=== PATIENT | female | born 1960 | race Caucasian/White ===

== ENCOUNTER 2021-09-07 11:24 | Emergency (ER) | payer OTHER ==
[2021-09-07 12:19] LABS: Basophils % (A) 1 %; Eosinophils # (A) 0.4 k/uL (0-0.7); Eosinophils % (A) 4 %; HCT 39.8 % (34.0-46.0); HGB 13.2 gm/dL (11.4-16.0); Lymphocytes # (A) 1.3 k/uL (1.0-4.8); Lymphocytes % (A) 15 %; MCHC 33.2 g/dL (31.0-37.0); MCV 93.3 fL (80.0-100.0); Monocytes # (A) 0.3 k/uL (0-1.0); Monocytes % (A) 4 %; Neutrophils % (A) 76 %; Platelet Count 344 k/uL (150-450); RBC 4.27 m/uL (3.80-5.40); RDW 15.2 % (11.5-15.5); WBC 9.2 k/uL (3.8-10.6)
--- NOTE | 2021-09-07 12:23 | XR ---
EXAMINATION TYPE: XR chest 2V DATE OF EXAM: 09/07/2021 COMPARISON: NONE HISTORY: Shortness of breath with bradycardia TECHNIQUE: Frontal and lateral views of the chest are obtained. FINDINGS: Overlying sternal wires and mediastinal clips. There is cardiac valvular ring. Cardiomegaly with dual-lead pacemaker is present. Mild chronic parenchymal changes without suspicious focal airsp bj opacity, pleural effusion, or pneumothorax seen bilaterally. Osseous structures are demineralized . Stent graft in the abdominal aorta is partially imaged. IMPRESSION: Chronic changes and cardiomegaly without acute pulmonary process.
[2021-09-07 12:28] LABS: Partial Thromboplastin Time 25.1 sec (22.0-30.0); Prothrombin Time 10.4 sec (9.0-12.0)
[2021-09-07 12:33] LABS: ALT 21 U/L (4-34); AST 23 U/L (14-36); African American GFR (CKD) >90 (>60 ml/min/1.73 sqM); Albumin 4.3 g/dL (3.5-5.0); Alkaline Phosphatase 102 U/L (38-126); Anion Gap 8 mmol/L; Blood Urea Nitrogen 14 mg/dL (7-17); Calcium 8.9 mg/dL (8.4-10.2); Carbon Dioxide 32 mmol/L (22-30); Chloride 99 mmol/L (98-107); Glucose 94 mg/dL (74-99); Non-African American GFR(CKD) >90 (>60 ml/min/1.73 sqM); Potassium 4.2 mmol/L (3.5-5.1); Sodium 139 mmol/L (137-145); Total Bilirubin 0.7 mg/dL (0.2-1.3); Total Protein 8.1 g/dL (6.3-8.2)
[2021-09-07] MEDS ORDERED: SODIUM CHLORIDE 0.9% 500 ML 500 ML IV ONE (13:55)
--- NOTE | 2021-09-07 15:06 | ED ---
SOB HPI - General Chief Complaint: Shortness of Breath Stated Complaint: Difficulty Breathing, Heart rate problems Time Seen by Provider: 09/07/21 11:32 Source: patient Mode of arrival: wheelchair - History of Present Illness Initial Comments: Patient is a 60-year-old female presenting with chief complaint of shortness of breath. Past medical history of CHF, COPD, with pacemaker in place. Patient states this has been going on for 1 week. She states that when she stands or wa lks she begins to feel short of breath and weak, she puts on her pulse ox and it states that her heart rate is dropping below 60. Patient has been taking albuterol inhaler and nebulizer treatments, which have not alleviated the symptoms. Patient states this is worse than her baseline shortness of breath. She complains of some vague chest discomfort when lying down at night. She denies fever, chills, nausea, vomiting, abdominal pain, pleuritic chest pain, hemoptysis, hematemesis, hematochezia, hematuria, dysuria, urgency, frequency, rash, confusion. - Related Data Home Medications Medication Instructions Recorded Confirmed Albuterol Nebulized [Ventolin 2.5 mg INHALATION RT-QID PRN 09/07/21 09/07/21 Nebulized] Albuterol Sulfate [Ventolin HFA] 2 puff INHALATION RT-Q4H PRN 09/07/21 09/07/21 Amiodarone HCl [Pacerone] 200 mg PO DAILY 09/07/21 09/07/21 Aspirin EC [Ecotrin Low Dose] 81 mg PO DAILY 09/07/21 09/07/21 Atorvastatin [Lipitor] 80 mg PO DAILY 09/07/21 09/07/21 Citalopram Hydrobromide [CeleXA] 20 mg PO HS 09/07/21 09/07/21 Cranberry Fruit Extract [Cranberry] 1,000 mg PO DAILY 09/07/21 09/07/21 Cyclobenzaprine [Flexeril] 10 mg PO TID PRN 09/07/21 09/07/21 Docusate [Colace] 100 mg PO HS 09/07/21 09/07/21 Elderberry Fruit and Flower [Black 1 cap PO DAILY 09/07/21 09/07/21 Elderberry 575 mg Cap] Fish Oil/Dha/Epa [Fish Oil 1,200 1 cap PO DAILY 09/07/21 09/07/21 mg Fish Oil] Fluticasone Nasal [place] [Flonase 2 spr EA NOSTRIL DAILY 09/07/21 09/07/21 Nasal [place]] Fluticasone/Vilanterol [Breo 1 puff INHALATION RT-DAILY 09/07/21 09/07/21 Ellipta 100-25 Mcg Inhaler] Furosemide [Lasix] 20 mg PO HS 09/07/21 09/07/21 Gabapentin 600 mg PO HS 09/07/21 09/07/21 Garlic 500mg 500 mg PO BID 09/07/21 09/07/21 Ginkgo Biloba 500 mg PO DAILY 09/07/21 09/07/21 Ipratropium-Albuterol Nebulize 3 ml INHALATION RT-QID PRN 09/07/21 09/07/21 [Duoneb 0.5 mg-3 mg/3 ml Soln] Levothyroxine Sodium [Synthroid] 137 mcg PO DAILY 09/07/21 09/07/21 Magnesium Oxide [Mag-Ox] 400 mg PO DAILY 09/07/21 09/07/21 Metoprolol Tartrate [Lopressor] 50 mg PO BID 09/07/21 09/07/21 Multivit-Min/Folic Acid/Biotin 133.3 mcg PO DAILY 09/07/21 09/07/21 [Hair, Skin and Nails Softgel] Multivitamins, Thera [Multivitamin 1 tab PO DAILY 09/07/21 09/07/21 (formulary)] Neuriva 1 cap PO HS 09/07/21 09/07/21 Promethazine/Dextromethorphan 5 ml PO Q6H PRN 09/07/21 09/07/21 [Promethazine-Dm Syrup] Spironolactone 12.5 mg PO DAILY 09/07/21 09/07/21 Tiotropium 2.5 Mcg/Puff [Spiriva 2 puff INHALATION RT-DAILY 09/07/21 09/07/21 Respimat 2.5 Mcg] Vits A,C,E/Lutein/Minerals 1 tab PO DAILY 09/07/21 09/07/21 [Ocuvite with Lutein Tablet] Viviscal 1 tab PO BID 09/07/21 09/07/21 Zinc 50 mg PO HS 09/07/21 09/07/21 metFORMIN HCL [Glucophage] 1,000 mg PO BID 09/07/21 09/07/21 ondansetron HCL [Zofran] 8 mg PO Q8H PRN 09/07/21 09/07/21 Allergies Allergy/AdvReac Type Severity Reaction Status Date / Time No Known Allergies Allergy Verified 09/07/21 14:44 Review of Systems ROS Statement: Those systems with pertinent positive or pertinent negative responses have been documented in the HPI. ROS Other: All systems not noted in ROS Statement are negative. Past Medical History Past Medical History: Atrial Fibrillation, COPD History of Any Multi-Drug Resistant Organisms: None Reported Past Surgical History: Pacemaker Additional Past Surgical History / Comment(s): open heart surgery with repair and pacemaker in October 2020 Past Psychological History: No Psychological Hx Reported Smoking Status: Former smoker Past Alcohol Use History: None Reported Past Drug Use History: None Reported General Exam Limitations: no limitations General appearance: alert, in no apparent distress Head exam: Present: atraumatic, normocephalic, normal inspection Eye exam: Present: normal appearance, PERRL, EOMI. Absent: scleral icterus, conjunctival injection, periorbital swelling ENT exam: Present: normal exam, mucous membranes moist Neck exam: Present: normal inspection Respiratory exam: Present: normal lung sounds bilaterally. Absent: respiratory distress, wheezes, rales, rhonchi, stridor Cardiovascular Exam: Present: regular rate, normal rhythm, normal heart sounds. Absent: systolic murmur, diastolic murmur, rubs, gallop, clicks Neurological exam: Present: alert, oriented X3, CN II-XII intact Psychiatric exam: Present: normal affect, normal mood Skin exam: Present: warm, dry, intact, normal color. Absent: rash Course Vital Signs 09/07/21 09/07/21 09/07/21 11:26 11:35 11:40 Temperature 98.0 F Pulse Rate 78 74 Respiratory 24 20 Rate Blood Pressure 140/67 O2 Sat by Pulse 97 95 Oximetry 09/07/21 09/07/21 16:18 17:14 Temperature 98.7 F Pulse Rate 70 70 Respiratory 18 20 Rate Blood Pressure 145/60 134/57 O2 Sat by Pulse 100 98 Oximetry Medical Decision Making - Medical Decision Making Patient is a 60-year-old female with past medical history of COPD and CHF resenting with chief complaint of difficulty breathing. The patient has a pacemaker in place, she states that lately when she stands up she feels palpitations and weakness. At that time she will put on a pulse ox which will indicate that her heart rate is dropping below 60. On examination patient has saturation of 97% on 2 L of oxygen and heart rate is 78. Lungs are clear to auscultation, heart sounds are regular. There is some mild edema of the lower extremities. Lab work is remarkable for a lactic acid 2.4 and d-dimer of 0.77. Patient tested positive for coronavirus. Chest x-ray shows chronic changes and cardiomegaly without acute pulmonary process. Workup for PE was indicated due to the patient testing positive for Covid and being on no blood thinner. CTA of chest was negative for PE. Patient received monoclonal antibodies as her symp toms started 1 week ago and her risk factors fell with into the criteria. Reflex lactic acid is 1.5. Patient received a 500 mL bolus of normal saline. Patient's vitals and exam are within normal limits, she appears stable to go home today. Follow-up with PCP in one to 2 days. Report back to ER with any worsening symptoms or new onset alarming symptoms. Counseled the patient on return parameters and alarm symptoms. Answered all questions. Patient conveyed verbal understanding and agreed to the plan. I discussed this case with my attending - Lab Data Result diagrams: 09/07/21 12:05 09/07/21 12:05 Lab Results 09/07/21 09/07/21 09/07/21 Range/Units 11:56 12:05 12:05 WBC 9.2 (3.8-10.6) k/uL RBC 4.27 (3.80-5.40) m/uL Hgb 13.2 (11.4-16.0) gm/dL Hct 39.8 (34.0-46.0) % MCV 93.3 (80.0-100.0) fL MCH 31.0 (25.0-35.0) pg MCHC 33.2 (31.0-37.0) g/dL RDW 15.2 (11.5-15.5) % Plt Count 344 (150-450) k/uL MPV 7.0 Neutrophils % 76 % Lymphocytes % 15 % Monocytes % 4 % Eosinophils % 4 % Basophils % 1 % Neutrophils # 7.0 (1.3-7.7) k/uL Lymphocytes # 1.3 (1.0-4.8) k/uL Monocytes # 0.3 (0-1.0) k/uL Eosinophils # 0.4 (0-0.7) k/uL Basophils # 0.0 (0-0.2) k/uL PT 10.4 (9.0-12.0) sec INR 1.0 (<1.2) APTT 25.1 (22.0-30.0) sec D-Dimer (<0.60) mg/L FEU Sodium (137-145) mmol/L Potassium (3.5-5.1) mmol/L Chloride (98-107) mmol/L Carbon Dioxide (22-30) mmol/L Anion Gap mmol/L BUN (7-17) mg/dL Creatinine (0.52-1.04) mg/dL Est GFR (CKD-EPI)AfAm (>60 ml/min/1.73 sqM) Est GFR (CKD-EPI)NonAf (>60 ml/min/1.73 sqM) Glucose (74-99) mg/dL Lactic Ac Sepsis Rflx Plasma Lactic Acid Yonatan (0.7-2.0) mmol/L Calcium (8.4-10.2) mg/dL Total Bilirubin (0.2-1.3) mg/dL AST (14-36) U/L ALT (4-34) U/L Alkaline Phosphatase (38-126) U/L Troponin I (0.000-0.034) ng/mL NT-Pro-B Natriuret Pep 1050 pg/mL Total Protein (6.3-8.2) g/dL Albumin (3.5-5.0) g/dL Coronavirus (PCR) (Not Detectd) 09/07/21 09/07/21 09/07/21 Range/Units 12:05 12:05 12:05 WBC (3.8-10.6) k/uL RBC (3.80-5.40) m/uL Hgb (11.4-16.0) gm/dL Hct (34.0-46.0) % MCV (80.0-100.0) fL MCH (25.0-35.0) pg MCHC (31.0-37.0) g/dL RDW (11.5-15.5) % Plt Count (150-450) k/uL MPV Neutrophils % % Lymphocytes % % Monocytes % % Eosinophils % % Basophils % % Neutrophils # (1.3-7.7) k/uL Lymphocytes # (1.0-4.8) k/uL Monocytes # (0-1.0) k/uL Eosinophils # (0-0.7) k/uL Basophils # (0-0.2) k/uL PT (9.0-12.0) sec INR (<1.2) APTT (22.0-30.0) sec D-Dimer (<0.60) mg/L FEU Sodium 139 (137-145) mmol/L Potassium 4.2 (3.5-5.1) mmol/L Chloride 99 (98-107) mmol/L Carbon Dioxide 32 H (22-30) mmol/L Anion Gap 8 mmol/L BUN 14 (7-17) mg/dL Creatinine 0.53 (0.52-1.04) mg/dL Est GFR (CKD-EPI)AfAm >90 (>60 ml/min/1.73 sqM) Est GFR (CKD-EPI)NonAf >90 (>60 ml/min/1.73 sqM) Glucose 94 (74-99) mg/dL Lactic Ac Sepsis Rflx Plasma Lactic Acid Yonatan 2.4 H* (0.7-2.0) mmol/L Calcium 8.9 (8.4-10.2) mg/dL Total Bilirubin 0.7 (0.2-1.3) mg/dL AST 23 (14-36) U/L ALT 21 (4-34) U/L Alkaline Phosphatase 102 (38-126) U/L Troponin I <0.012 (0.000-0.034) ng/mL NT-Pro-B Natriuret Pep pg/mL Total Protein 8.1 (6.3-8.2) g/dL Albumin 4.3 (3.5-5.0) g/dL Coronavirus (PCR) (Not Detectd) 09/07/21 09/07/21 09/07/21 Range/Units 12:05 12:49 14:08 WBC (3.8-10.6) k/uL RBC (3.80-5.40) m/uL Hgb (11.4-16.0) gm/dL Hct (34.0-46.0) % MCV (80.0-100.0) fL MCH (25.0-35.0) pg MCHC (31.0-37.0) g/dL RDW (11.5-15.5) % Plt Count (150-450) k/uL MPV Neutrophils % % Lymphocytes % % Monocytes % % Eosinophils % % Basophils % % Neutrophils # (1.3-7.7) k/uL Lymphocytes # (1.0-4.8) k/uL Monocytes # (0-1.0) k/uL Eosinophils # (0-0.7) k/uL Basophils # (0-0.2) k/uL PT (9.0-12.0) sec INR (<1.2) APTT (22.0-30.0) sec D-Dimer 0.77 H (<0.60) mg/L FEU Sodium (137-145) mmol/L Potassium (3.5-5.1) mmol/L Chloride (98-107) mmol/L Carbon Dioxide (22-30) mmol/L Anion Gap mmol/L BUN (7-17) mg/dL Creatinine (0.52-1.04) mg/dL Est GFR (CKD-EPI)AfAm (>60 ml/min/1.73 sqM) Est GFR (CKD-EPI)NonAf (>60 ml/min/1.73 sqM) Glucose (74-99) mg/dL Lactic Ac Sepsis Rflx Y Plasma Lactic Acid Yonatan (0.7-2.0) mmol/L Calcium (8.4-10.2) mg/dL Total Bilirubin (0.2-1.3) mg/dL AST (14-36) U/L ALT (4-34) U/L Alkaline Phosphatase (38-126) U/L Troponin I (0.000-0.034) ng/mL NT-Pro-B Natriuret Pep pg/mL Total Protein (6.3-8.2) g/dL Albumin (3.5-5.0) g/dL Coronavirus (PCR) Detected A (Not Detectd) 09/07/21 Range/Units 15:08 WBC (3.8-10.6) k/uL RBC (3.80-5.40) m/uL Hgb (11.4-16.0) gm/dL Hct (34.0-46.0) % MCV (80.0-100.0) fL MCH (25.0-35.0) pg MCHC (31.0-37.0) g/dL RDW (11.5-15.5) % Plt Count (150-450) k/uL MPV Neutrophils % % Lymphocytes % % Monocytes % % Eosinophils % % Basophils % % Neutrophils # (1.3-7.7) k/uL Lymphocytes # (1.0-4.8) k/uL Monocytes # (0-1.0) k/uL Eosinophils # (0-0.7) k/uL Basophils # (0-0.2) k/uL PT (9.0-12.0) sec INR (<1.2) APTT (22.0-30.0) sec D-Dimer (<0.60) mg/L FEU Sodium (137-145) mmol/L Potassium (3.5-5.1) mmol/L Chloride (98-107) mmol/L Carbon Dioxide (22-30) mmol/L Anion Gap mmol/L BUN (7-17) mg/dL Creatinine (0.52-1.04) mg/dL Est GFR (CKD-EPI)AfAm (>60 ml/min/1.73 sqM) Est GFR (CKD-EPI)NonAf (>60 ml/min/1.73 sqM) Glucose (74-99) mg/dL Lactic Ac Sepsis Rflx Plasma Lactic Acid [place]onatan 1.5 (0.7-2.0) mmol/L Calcium (8.4-10.2) mg/dL Total Bilirubin (0.2-1.3) mg/dL AST (14-36) U/L ALT (4-34) U/L Alkaline Phosphatase (38-126) U/L Troponin I (0.000-0.034) ng/mL NT-Pro-B Natriuret Pep pg/mL Total Protein (6.3-8.2) g/dL Albumin (3.5-5.0) g/dL Coronavirus (PCR) (Not Detectd) When compared to previous EKG there are: previous EKG unavailable Interpretation: nonspecific ST-T wave changes, other (Electronic atrial pacemaker. Rate is 74. NV interval is 179.) - Radiology Data Radiology results: report reviewed Chest x-ray shows chronic changes and cardiomegaly without acute pulmonary process. CTA of chest was negative for PE. Disposition Clinical Impression: COVID-19 Disposition: HOME SELF-CARE Condition: Fair Instructions (If sedation given, give patient instructions): COVID-19 (Coronavirus Disease 2019) (ED), COVID-19 and Chronic Health Conditions (ED), Face Coverings (Masks) and COVID-19 (ED), How to Recover from COVID-19 at Home (ED) Additional Instructions: Follow-up with her primary care in 1-2 days. Report back to the ER with any worsening symptoms or new onset alarm symptoms, including but not limited to chest pain, shortness of breath, fever, chills, palpitations, weakness. Is patient prescribed a controlled substance at d/c from ED?: No Referrals: None,Stated [Primary Care Provider] - 1-2 days Time of Disposition: 16:58
[2021-09-07] MEDS ORDERED: SOTROVIMAB (EUA) 500 MG in SODIUM CHLORIDE 0.9% 100 ML IVPB ONE (16:00)
[2021-09-07 16:19] VITALS: PULSE 70
[2021-09-07] MEDS ORDERED: SODIUM CHLORIDE 0.9% 50 ML IVPB ONE (16:30)
--- NOTE | 2021-09-07 16:38 | CT ---
EXAMINATION TYPE: CT chest angio for PE CT DLP: 379 mGycm, Automated exposure control for dose reduction was used. DATE OF EXAM: 09/07/2021 4:20 PM COMPARISON: Chest radiograph from same day. CLINICAL INDICATION:Female, 60 years old with history of PHI, covid +; PHI, Covid + Hx COPD, heart di sease TECHNIQUE/CONTRAST: CTA scan of the thorax is performed with IV Contrast, patient injected with 100 mL of Isovue 300, pul monary embolism protocol. MIP images are created and reviewed. FINDINGS: Pulmonary Artery: There is no evidence for a filling defect within the pulmonary vasculature to sugge st acute pulmonary embolism. The pulmonary artery is at the upper limits of normal for size. Lungs/Pleura: No evidence of focal consolidation, pleural effusion or pneumothorax. There is right ap ical pulmonary nodule/convex opacity measuring 8 mm. Airway: Large airways are patent. Heart: The heart is mildly enlarged for size. There is aortic valve repair changes as well as moderat e density within the coronary arteries which could be secondary from stenting or atherosclerosis. Car diac conduction leads are present terminating in appropriate position. Vasculature: No evidence of aortic aneurysm. There is severe atherosclerosis of the arterial vasculat ure. Mediastinum: No gross evidence of adenopathy. There is surgical clips seen throughout the mediastinum . Musculoskeletal: Sternotomy wires are present. Multilevel disc degeneration changes are present. St reaky atelectasis/scarring seen within lung bases Soft Tissues: Cardiac conduction device seen with in the left chest wall. Lower neck: No significant findings. Upper Abdomen: No significant findings. IMPRESSION: 1. No evidence of pulmonary embolism. 2. Presurgical changes of the mitral valve and coronary arteries mild cardiomegaly. 3. Severe atherosclerosis of the arterial vasculature.
[2021-09-07 17:14] VITALS: BP 134/57; RESP 20; TEMP 98.7
== END 2021-09-07 17:14 | disposition home or self-care (01) ==
LOC: EC 11:24
DX: U07.1 COVID-19 (principal); I48.91 Unspecified atrial fibrillation; J44.9 Chronic obstructive pulmonary disease, unspecified; Z87.891 Personal history of nicotine dependence; Z79.84 Long term (current) use of oral hypoglycemic drugs; Z79.51 Long term (current) use of inhaled steroids; Z79.82 Long term (current) use of aspirin; Z79.890 Hormone replacement therapy; Z79.899 Other long term (current) drug therapy
CPT/HCPCS: 36415; 93005; 85379; 83880; 80053; 83605; 84484; 85025; 85610; 85730; 87635; 71046; 71275; 99285; 96360; 96361; Q9967; Q0247